=== PATIENT | female | born 1985 | race African-American/Black ===

== ENCOUNTER 2017-04-27 21:44 | Emergency (ER) | payer MEDICARE ==
--- NOTE | ~2017-04-27 | ER ---
PATIENT'S NAME: ZANE ADAMSON [facility] AGE: 31 Y [address] ROOM: [place] [id number] LOCATION: [facility] ADMIT DATE: 04/27/2017 ER/Outpatient Report DISCHARGE DATE: 04/27/2017 FAMILY PHYSICIAN: PHYSICIAN, VÍCTOR ATTENDING PHYSICIAN: Connie Santiago Time of Arrival: 2150 hours. Time of Evaluation: 2200 hours. CHIEF COMPLAINT: Sore throat and generalized discomfort. HISTORY OF PRESENT ILLNESS: The patient states she has been sick for the past 24 to 26 hours. She has had a dry cough, felt feverish. She has been nauseated, no vomiting. She has generalized body aches and sore throat. Denies having a headache. She does not have chest pain. She does not feel short of breath. She does not have abdominal pain. ALLERGIES AND MEDICATIONS: On her chart and reviewed by me. PAST MEDICAL HISTORY: Benign. PAST SURGICAL HISTORY: Negative. AUDIO/VIDEO ENGINEER HISTORY: Last menstrual period was in March. SOCIAL HISTORY: She denies the use of tobacco and drugs. Drinks alcohol on occasional basis. REVIEW OF SYSTEMS: All negative other than those mentioned in the HPI. PHYSICAL EXAMINATION: VITAL SIGNS: She weighs 55.5 kg, blood pressure is 114/67, pulse of 86, respirations 16, temperature of 99.7, O2 saturations 98% on room air. GENERAL: She is awake, alert, and oriented x4. SKIN: [place], warm, and dry. RESPIRATIONS: Even and nonlabored. HEENT: TMs are pearly white. Nasal is clear. Oropharynx is red posteriorly. No exudate noted. PATIENT'S NAME: ZANE ADAMSON [facility] AGE: 31 Y [address] ROOM: [place], [place] [address] LOCATION: [facility] ADMIT DATE: 04/27/2017 ER/Outpatient Report DISCHARGE DATE: 04/27/2017 FAMILY PHYSICIAN: PHYSICIAN, VÍCTOR ATTENDING PHYSICIAN: Connie Santiago NECK: Supple. No lymphadenopathy. LUNGS: Lung sounds are clear throughout. HEART: Regular rate and rhythm. ABDOMEN: Soft, nondistended. Bowel sounds are present. LABORATORY DATA AND X-RAYS: Strep screen of the throat was obtained. It is negative. IMPRESSION: Viral illness. PLAN: Home, rest, and fluids. Tylenol or ibuprofen for fever and discomfort. Follow up with the primary provider in 2-3 days if symptoms persist or worsen. She verbalized understanding. FREDERICK PIRES APRN FOR [facility]/bridgett /[id number] d: 04/28/17214 t: 04/29/171955, OUTPATIENT REPORT
== END 2017-04-27 22:28 | disposition disaster alternative care site (69) ==
LOC: GMED 21:44
DX: B34.9 Viral infection, unspecified (principal); Z88.8 Allergy status to other drugs, medicaments and biological substances; Z88.1 Allergy status to other antibiotic agents